=== PATIENT | male | born 1960 | race Caucasian/White ===

== ENCOUNTER → 2018-02-18 | Outpatient (CLI) | payer BC ==
[~2018-02-18] VITALS: Ht 182.9 cm; Wt 95.7 kg
[~2018-02-18] MED LIST: AC325T PO; ACHD5005 PO; ASP325TEC PO; ASP81TEC PO; ATEN-156 PO; ATOR80TA PO; CATHETER FLUSH 10 ML SYR IV PRN; CLOP75TA PO; CYCL10TA9 PO; ENAL2.5T PO; ISM30TCR PO; METO-333 PO; METO25TA2 PO; MTP25TSR PO; NITR0.4T12 SL; OMEP-10 PO; OMEP20TA2 PO; OMG1KC PO; PANT40SU PO; PNT40TEC PO; RANI75TA30 PO; SULF1TAB38 PO
[2018-02-18 09:01] VITALS: BP 128/82
[2018-02-18 09:17] VITALS: BP 121/77
[2018-02-18 09:25] VITALS: BP 151/83
--- NOTE | 2018-02-18 14:49 | STRESS TEST ---
DATE OF SERVICE: 02/18/2018 EXERCISE MYOVIEW STRESS TEST REPORT REFERRING PHYSICIAN: Dr. Castano. Baseline heart rate is 58, baseline blood pressure 128/95. Baseline EKG sinus rhythm with no ischemic changes. In summary, the patient was injected with 9.52 mCi of technetium-99 Myoview and the resting images were obtained. Then, the patient started exercising with a baseline heart rate, blood pressure and EKG mentioned above. He was able to exercise for a total of 8 minutes 30 seconds on standard Rosalino protocol, achieving maximum heart rate of 137. With peak exercise level, blood pressure was 183/104. EKG was showing minimal nondiagnostic changes. During recovery, occasional PVCs and ventricular bigeminy was noted. The resting and stress images were reviewed and compared in the short axis, horizontal long axis and vertical long axis views. Review of the images showed diaphragmatic attenuation with good radiotracer uptake, no significant ischemia or infarction. SSS is 1, SDS 1, TID value 1.06. On the gated images, the left ventricle appeared to be in normal size, mild hypokinesia at the apex and anteroapical segment. Estimated ejection fraction is 47%. CONCLUSION: 1. Good exercise tolerance, a total of 8 minutes 30 seconds of standard Rosalino protocol, total of 10.1 METS achieving 87% of maximum expected heart rate. 2. Hypertensive response to exercise, returned to baseline during recovery. 3. Occasional PVCs and ventricular trigeminy noted early in recovery and resolved later in recovery. 4. Normal left ventricular size with mild hypokinesia at the anterior wall and to her apex could be due to the PVCs with calculated ejection fraction of 47%. 5. Diaphragmatic attenuation with typical male pattern. No significant ischemia or infarction on SPECT images. Job ID: [id number] DocumentID: [id number] Dictated Date: 02/18/2018 11:18:44 Plastic Block Boiler Reliner Date: 02/18/2018 12:33:28 Dictated By: OSMANY GARCIA MD
== END ==
LOC: CARD 07:16
PROVIDERS: ATTEND Internal Medicine Cardiovascular Disease
DX: I25.10 Atherosclerotic heart disease of native coronary artery without angina pectoris (principal); R07.89 Other chest pain; I10 Essential (primary) hypertension; E78.2 Mixed hyperlipidemia
CPT/HCPCS: 78452; 93017; 93306

== ENCOUNTER → 2019-07-15 | Outpatient (CLI) | payer BC ==
[~2019-07-15] MED LIST changes: -CATHETER FLUSH 10 ML SYR IV PRN; +LISI10TA2 PO; +ROSU20TA2 PO
== END | disposition home or self-care (01) ==
LOC: PREOP 06-17 05:45
PROVIDERS: ATTEND Surgery
DX: Z01.818 Encounter for other preprocedural examination (principal)

== ENCOUNTER 2019-07-22 07:48 | Day surgery (SDC) | payer BC ==
[~2019-07-22] VITALS: Ht 182.9 cm; Wt 95.7 kg
[~2019-07-22 07:48] MED LIST changes: -LISI10TA2 PO; -ROSU20TA2 PO
[2019-07-22 08:00] VITALS: BP 154/98
[2019-07-22] MEDS ORDERED: LACTATED RINGERS 0 ML IV ONE (08:06)
[2019-07-22] MEDS ORDERED: LACTATED RINGERS 1,000 ML IV ONE (08:08)
[2019-07-22] MEDS ORDERED: LACTATED RINGERS 1,000 ML IV STA (08:12)
[2019-07-22] MEDS ORDERED: LISI10TA2 PO (08:12)
[2019-07-22] MEDS ORDERED: ROSU20TA2 PO (08:12)
[2019-07-22] MEDS ORDERED: HURRICAINE EXT TUBE (BENZOCAINE) XX PRN (08:15)
[2019-07-22] MEDS ORDERED: MIDAZOLAM 2 MG/2 ML (VERSED) VIAL ONE (08:58)
[2019-07-22] MEDS ORDERED: PROPOFOL INJECTION 50 ML IV ONE (08:59)
[2019-07-22] MEDS ORDERED: ESMOLOL 100 MG/10 ML (BREVIBLOC) VIAL ONE (09:10)
[2019-07-22 09:50] VITALS: BP 103/64
[2019-07-22] MEDS ORDERED: HURRICAINE EXT TUBE (BENZOCAINE) ONE (09:52)
--- NOTE | 2019-07-22 09:52 | Progress Note-Post Operative ---
Post-Operative Progess Note Surgeon (s)/Entertainment Agent (s) Surgeon BRAYDON MOREL DO Entertainment Agent: na Pre-Operative Diagnosis gerd, screening colon Post-Operative Diagnosis hiatal hernia, colon polyp sigmoid Procedure & Operative Findings Date of Procedure 07/22/19 Procedure Performed/Findings egd c biopsies, colonoscopy c hot bx polypectomy Anesthesia Type per mda Estimated Blood Loss Estimated blood loss (mL): none Specimens/Packing Specimens Removed antrum, ge, sigmoid colon polyp BRAYDON MOREL DO Jul 22, 2019 09:52
--- NOTE | 2019-07-22 09:53 | Discharge Inst-Simple/Standard ---
Discharge Inst-Standard Patient Instructions/Follow Up Plan of Care/Instructions/FU: 2 weeks Josefina Activity as Tolerated: Yes Discharge Diet: Regular Diet BRAYDON MOREL DO Jul 22, 2019 09:53
[2019-07-22 09:55] VITALS: BP 109/69
[2019-07-22 10:00] VITALS: BP 111/71
[2019-07-22 10:30] VITALS: BP 127/90
[2019-07-22 10:40] VITALS: BP 127/90
--- NOTE | 2019-07-22 10:46 | Anesthesia-General Post-Op ---
MAC Patient Condition Mental Status/LOC: Same as Preop Cardiovascular: Satisfactory Nausea/Vomiting: Absent Respiratory: Satisfactory Pain: Controlled Complications: Absent Post Op Complications Complications None Follow Up Care/Instructions Patient Instructions None needed. Anesthesiology Discharge Order Discharge Order Patient is doing well, no complaints, stable vital signs, no apparent adverse anesthesia problems. No complications reported per nursing. REID VALVERDE CRNA Jul 22, 2019 10:46
--- NOTE | 2019-07-22 17:14 | OPERATIVE REPORT ---
DATE OF SERVICE: 07/22/2019 PREOPERATIVE DIAGNOSES: Gastroesophageal reflux disease, screening colonoscopy. POSTOPERATIVE DIAGNOSES: Hiatal hernia, colon polyp, sigmoid. PROCEDURE: EGD with biopsies, colonoscopy with hot biopsy polypectomy of sigmoid colon polyp. SURGEON: Braydon Rocha DO ANESTHESIA: Per MDA. ESTIMATED BLOOD LOSS: None. COMPLICATIONS: None. SPECIMENS: Antrum, GE junction and sigmoid colon polyp. INDICATIONS: The patient is a 59-year-old male with reflux and needing screening colonoscopy. He understands risks and benefits of procedure and wished to proceed with procedures. Consent was signed in the chart. DESCRIPTION OF PROCEDURE: The patient was taken to the endoscopy suite, placed in left lateral recumbent position. Timeout was performed. Scope was inserted in mouth, down the esophagus, stomach and into the duodenum without difficulty. There were no polyps, masses or ulcerations within the duodenum. Scope was then slowly retracted back into the stomach where further insufflated. There were no polyps, masses or ulcerations. Biopsy of the antrum was obtained. Scope was retroflexed noting a moderate sized hiatal hernia, no other polyps, masses or ulcerations. Scope was returned to its normal position, slowly withdrawn to the distal esophagus. Some slight erythematous changes in the distal esophagus. Biopsy was obtained. Scope was then slowly retracted back until completely removed, noting no other pathology. Digital rectal exam was performed. There were no palpable polyps, mass or ulcerations. The scope was inserted in the rectum, advanced all the way to the cecum with minimal difficulty. Prep was adequate. Scope was then slowly retracted back. There were no polyps, masses or ulcerations within cecum, ascending, transverse and descending colon. In the distal sigmoid colon, there was a small polyp, which hot biopsy polypectomy was performed. Scope was continuously retracted back into the rectum, where it was also retroflexed noting no other pathology. Scope was returned to its normal position, slowly withdrawn until completely removed. The patient tolerated the procedure well without any complications, taken to recovery room in stable condition. We will continue on current medications. He will follow up in the office in 2 weeks. He will need repeat colonoscopy in 5 years unless change before then should be reevaluated at that time. Job ID: [id number] DocumentID: [id number] Dictated Date: 07/22/2019 09:56:38 Student Teaching Coordinator Date: 07/22/2019 17:13:44 Dictated By: BRAYDON ROCHA DO
== END 2019-07-22 10:40 | disposition home or self-care (01) ==
LOC: ENDO 07:48
PROVIDERS: ATTEND Surgery
DX: Z12.11 Encounter for screening for malignant neoplasm of colon (principal); K63.5 Polyp of colon; K29.50 Unspecified chronic gastritis without bleeding; K21.0 Gastro-esophageal reflux disease with esophagitis; K44.9 Diaphragmatic hernia without obstruction or gangrene; I10 Essential (primary) hypertension; I25.10 Atherosclerotic heart disease of native coronary artery without angina pectoris; Z79.82 Long term (current) use of aspirin; Z95.1 Presence of aortocoronary bypass graft; Z82.49 Family history of ischemic heart disease and other diseases of the circulatory system

== ENCOUNTER → 2020-01-04 | Outpatient (CLI) | payer BC ==
[~2020-01-04] MED LIST changes: +LISI10TA2 PO; +ROSU20TA2 PO
== END ==
LOC: LAB 11:02
PROVIDERS: ATTEND Surgery
DX: Z86.19 Personal history of other infectious and parasitic diseases (principal)
CPT/HCPCS: 36415; 87015; 87045; 87046; 87338; 87899

== ENCOUNTER → 2020-08-27 | Outpatient (CLI) | payer OTHER | LOC: CARD 10:00 | PROVIDERS: ATTEND Physician Assistant | DX: I25.10 Atherosclerotic heart disease of native coronary artery without angina pectoris (principal); I65.23 Occlusion and stenosis of bilateral carotid arteries; I10 Essential (primary) hypertension; E78.2 Mixed hyperlipidemia; Z82.49 Family history of ischemic heart disease and other diseases of the circulatory system | CPT/HCPCS: 93225; 93226; 93306 ==

== ENCOUNTER → 2020-09-03 | Outpatient (CLI) | payer OTHER | LOC: LABNPT 05:32 | PROVIDERS: ATTEND Internal Medicine Cardiovascular Disease | DX: Z01.812 Encounter for preprocedural laboratory examination (principal); Z53.9 Procedure and treatment not carried out, unspecified reason ==

== ENCOUNTER → 2020-09-06 | Outpatient (CLI) | payer OTHER ==
[~2020-09-06] VITALS: Ht 182 cm; Wt 108.0 kg
[~2020-09-06] MED LIST changes: +CATHETER FLUSH 10 ML SYR IV PRN
[2020-09-06 09:19] VITALS: BP 161/97
[2020-09-06 10:04] LABS: ALANINE AMINOTRANSFERASE 32 U/L (0-55); ALBUMIN 4.7 GM/DL (3.2-4.5); ALKALINE PHOSPHATASE 58 U/L (40-136); BILIRUBIN,TOTAL 0.4 MG/DL (0.1-1.0); BUN/CREATININE RATIO 18; CALCIUM 9.8 MG/DL (8.5-10.1); CARBON DIOXIDE 14 MMOL/L (21-32); CHLORIDE 102 MMOL/L (98-107); CHOLESTEROL 304 MG/DL (< 200); CREATININE SERUM 1.56 MG/DL (0.60-1.30); GFR ESTIMATED 45; GLUCOSE 102 MG/DL (70-105); HDL CHOLESTEROL 28 MG/DL (40-60); POTASSIUM 4.9 MMOL/L (3.6-5.0); SODIUM 136 MMOL/L (135-145); TOTAL PROTEIN 8.3 GM/DL (6.4-8.2); TRIGLYCERIDES 1635 MG/DL (<150)
--- NOTE | 2020-09-06 11:36 | Cardiology Stress Test Report ---
Stress Test Report Date of Procedure/Referring: Date of Procedure: Sep 06, 2020 PCP Anita Sanchez Admitting Physician No,Local Physician Indications: Coronary artery disease Baseline Heart Rate: 75 Baseline Blood Pressure: Blood Pressure Systolic: 161 Blood Pressure Diastolic: 97 Vital Signs Date Time Temp Pulse Resp B/P (MAP) Pulse Ox O2 Delivery O2 Flow Rate FiO2 09/06/20 09:19 95 16 161/97 (118) 95 Room Air Baseline Vital Signs Vital Signs Date Time Temp Pulse Resp B/P (MAP) Pulse Ox O2 Delivery O2 Flow Rate FiO2 09/06/20 09:19 95 16 161/97 (118) 95 Room Air Baseline EKG: Baseline EKG: normal sinus rhythm Summary: After explaining the procedure and details to the patient, he signed the consent and was brought to the stress nuclear laboratory. Patient exercised on standard Rosalino protocol, EKG, heart rate and blood pressure were monitored continuously, resting and stress doses of radio tracer were injected, imaging was acquired and reviewed in the short axis, horizontal long axis and vertical long axis views Patient was able to exercise for a total of 4:30 minutes on Rosalino protocol, METs 6.4 Maximum heart rate 144 Maximum blood pressure 226/96 Stress EKG, Minimal nondiagnostic changes, frequent PVCs, ventricular bigeminy Recovery EKG, Return to baseline TID: 0.86 SSS: 4 SDS: 4 EF: 51 Conclusion: 1. Poor exercise tolerance for total 4 minutes 30 seconds on standard Rosalino protocol, 6.4 METs achieving 91 percent of maximum expected heart rate 2. Exercise induced frequent premature ventricular contractions persisted during recovery 3. Minimal nondiagnostic EKG changes with exercise returned to baseline during recovery 4. Diaphragmatic attenuation with mild reversible ischemia involving the mid to apical inferior wall and inferoseptum, could be secondary to the diaphragmatic attenuation 5. Normal left ventricular size, EF 51 percent OSMANY GARCIA MD Sep 06, 2020 11:36
== END ==
LOC: CARD 07:18
PROVIDERS: ATTEND Physician Assistant
DX: I25.10 Atherosclerotic heart disease of native coronary artery without angina pectoris (principal); I65.23 Occlusion and stenosis of bilateral carotid arteries; I10 Essential (primary) hypertension; E78.2 Mixed hyperlipidemia; Z82.49 Family history of ischemic heart disease and other diseases of the circulatory system
CPT/HCPCS: 78452; 80053; 80061; 93017; A9502; 36415

== ENCOUNTER → 2021-11-30 | Day surgery (SDC) | payer OTHER ==
[~2021-11-30] VITALS: Ht 182.9 cm; Wt 108.1 kg
[~2021-11-30] MED LIST changes: -CATHETER FLUSH 10 ML SYR IV PRN; +FAMO20TA3 PO; +GEMF600T88 PO; +HEParin (CATH LAB) 0 ML IV ONE; +LIDOCAINE 1% INJ 20 ML VIAL ONE; -LISI10TA2 PO; +LISI10TA25 PO; +NS IV 1000 ML 1,000 ML IV SCH; +NS IV 1000 ML 1,000 ML ONE
[2021-11-30 11:45] VITALS: BP 150/88
[2021-11-30 11:56] LABS: HEMATOCRIT 48 % (40-54); MEAN CORPUSCULAR HEMOGLOBIN 31 pg (25-34); MEAN CORPUSCULAR HGB CONC 36 g/dL (32-36); MEAN CORPUSCULAR VOLUME 88 fL (80-99); MEAN PLATELET VOLUME 10.6 fL (9.0-12.2); PLATELET COUNT 225 10^3/uL (130-400); WHITE BLOOD COUNT 5.6 10^3/uL (4.3-11.0)
[2021-11-30 12:12] LABS: ALANINE AMINOTRANSFERASE 26 U/L (0-55); ALBUMIN 4.9 GM/DL (3.2-4.5); ALKALINE PHOSPHATASE 49 U/L (40-136); BILIRUBIN,TOTAL 0.3 MG/DL (0.1-1.0); BUN/CREATININE RATIO 20; CARBON DIOXIDE 16 MMOL/L (21-32); CHLORIDE 108 MMOL/L (98-107); CHOLESTEROL 205 MG/DL (< 200); CREATININE SERUM 2.56 MG/DL (0.60-1.30); GFR ESTIMATED 27; GLUCOSE 108 MG/DL (70-105); HDL CHOLESTEROL 26 MG/DL (40-60); POTASSIUM 4.5 MMOL/L (3.6-5.0); SODIUM 137 MMOL/L (135-145); TOTAL PROTEIN 8.4 GM/DL (6.4-8.2); TRIGLYCERIDES 307 MG/DL (<150); VLDL CHOLESTEROL 61 MG/DL (5-40)
--- NOTE | 2021-11-30 12:23 | Diagnostic Imaging Report ---
INDICATION: Preop for heart catheterization. TIME OF EXAM: 11:45 AM Correlation is made with prior chest in 08/14/2011. FINDINGS: There are changes of median sternotomy and CABG. The heart size is normal. Lungs are clear. No infiltrates are seen. There is no effusion or pneumothorax. IMPRESSION: No acute cardiopulmonary process is detected. Dictated by: Dictated on workstation # [id number]
== END | disposition home or self-care (01) ==
LOC: CATH 13:00
PROVIDERS: ATTEND Internal Medicine Cardiovascular Disease
DX: I25.10 Atherosclerotic heart disease of native coronary artery without angina pectoris (principal); I10 Essential (primary) hypertension; I49.3 Ventricular premature depolarization; E78.1 Pure hyperglyceridemia; N52.9 Male erectile dysfunction, unspecified; Z79.899 Other long term (current) drug therapy; E78.2 Mixed hyperlipidemia; Z95.1 Presence of aortocoronary bypass graft; Z87.891 Personal history of nicotine dependence; Z79.82 Long term (current) use of aspirin; K21.9 Gastro-esophageal reflux disease without esophagitis; Z53.09 Procedure and treatment not carried out because of other contraindication
CPT/HCPCS: 36415; 71045; 80053; 80061; 85027; 85610; 85730; 87081

== ENCOUNTER 2021-12-07 11:00 | Day surgery (SDC) | payer OTHER ==
[~2021-12-07] VITALS: Ht 182 cm; Wt 108.1 kg
[2021-12-07] VITALS (11 sets, daily range): BP systolic 127–171; BP diastolic 65–89
[2021-12-07 10:00] LABS: BILIRUBIN,URINE NEGATIVE (NEGATIVE); CLARITY,URINE CLEAR; COLOR,URINE YELLOW; GLUCOSE, URINE (UA) NEGATIVE (NEGATIVE); KETONES,URINE NEGATIVE (NEGATIVE); LEUKOCYTE ESTERASE ,URINE NEGATIVE (NEGATIVE); NITRITE,URINE NEGATIVE (NEGATIVE); PROTEIN,URINE 1+ (NEGATIVE)
[2021-12-07 10:02] LABS: BASOPHILS % (AUTO) 1 % (0-10); EOSINOPHILS # (AUTO) 0.1 10^3/uL (0.0-0.3); EOSINOPHILS % (AUTO) 3 % (0-10); HEMATOCRIT 42 % (40-54); HEMOGLOBIN 14.6 g/dL (13.3-17.7); LYMPHOCYTES # (AUTO) 1.8 10^3/uL (1.0-4.0); LYMPHOCYTES % (AUTO) 34 % (12-44); MEAN CORPUSCULAR HEMOGLOBIN 31 pg (25-34); MEAN CORPUSCULAR HGB CONC 35 g/dL (32-36); MEAN CORPUSCULAR VOLUME 89 fL (80-99); MEAN PLATELET VOLUME 10.3 fL (9.0-12.2); MONOCYTES # (AUTO) 0.4 10^3/uL (0.0-1.0); MONOCYTES % (AUTO) 8 % (0-12); NEUTROPHILS # (AUTO) 2.8 10^3/uL (1.8-7.8); NEUTROPHILS % (AUTO) 54 % (42-75); PLATELET COUNT 247 10^3/uL (130-400); WHITE BLOOD COUNT 5.2 10^3/uL (4.3-11.0)
[2021-12-07 10:07] LABS: BACTERIA,URINE NEGATIVE /HPF
[2021-12-07 10:11] LABS: PROTHROMBIN TIME PATIENT 13.4 SEC (12.2-14.7)
[2021-12-07 10:21] LABS: ALANINE AMINOTRANSFERASE 21 U/L (0-55); ALBUMIN 4.6 GM/DL (3.2-4.5); ALKALINE PHOSPHATASE 44 U/L (40-136); BILIRUBIN,TOTAL 0.4 MG/DL (0.1-1.0); BUN/CREATININE RATIO 11; CARBON DIOXIDE 21 MMOL/L (21-32); CHLORIDE 107 MMOL/L (98-107); CHOLESTEROL 210 MG/DL (< 200); CREATININE SERUM 1.69 MG/DL (0.60-1.30); GFR ESTIMATED 45; GLUCOSE 102 MG/DL (70-105); HDL CHOLESTEROL 32 MG/DL (40-60); POTASSIUM 4.3 MMOL/L (3.6-5.0); SODIUM 141 MMOL/L (135-145); TOTAL PROTEIN 7.6 GM/DL (6.4-8.2); TRIGLYCERIDES 165 MG/DL (<150); VLDL CHOLESTEROL 33 MG/DL (5-40)
[~2021-12-07 11:00] MED LIST changes: -HEParin (CATH LAB) 0 ML IV ONE; +HEParin (CATH LAB) 2,000 ML IV ONE; +MIDAZOLAM 5 MG/5 ML (VERSED) VIAL ONE; +fentaNYL INJ 100 MCG/2 ML AMP ONE
--- NOTE | 2021-12-07 11:13 | Conscious Sedation/ASA ---
Conscious Sedation Pre-Proced Time 11:13 ASA Score 3 For ASA 3 and 4: Consider anesthesia and medical clearance. Also, for patients with a history of failed moderate sedation consider anesthesia. Airway Lungs Heart ASA score ASA 1: a normal healthy patient ASA 2: a patient with a mild systemic disease (mid diabetes, controlled hypertension, obesity x ASA 3: a patient with a severe systemic disease that limits activity (angina, COPD, prior Myocardial infarction) ASA 4: a patient with an incapacitating disease that is a constant threat to life (CHF, renal failure) ASA 5: a moribund patient not expected to survive 24 hrs. (ruptured aneurysm) ASA 6: a declared brain- patient whose organs are being harvested. For emergent operations, add the letter E after the classification Mallampati Classification Grade 3 Sedation Plan Analgesia, Amnesia, Plan communicated to team members, Discussed options with patient/fam, Discussed risks with patient/fam The patient is an appropriate candidate to undergo the planned procedure, sedation, and anesthesia. The patient immediately re-assessed prior to indication. OSMANY GARCIA MD Dec 07, 2021 11:13
[2021-12-07] MEDS ORDERED: LIDOCAINE 1% INJ 20 ML VIAL ONE (11:23)
[2021-12-07] MEDS ORDERED: NS IV 1000 ML 1,000 ML ONE (11:59)
--- NOTE | 2021-12-07 12:14 | Discharge Inst-Post CATH ---
Discharge Inst-CATH/EP Problems Reviewed?: Yes Post Cardiac Cath/EP D/C Inst Follow Up/Plan Appointment with Dr. King's office in 2 to 4 weeks <b>CARDIAC CATH/EP PROCEDURE DISCHARGE INSTRUCTIONS</b> ACTIVITY * Go Home directly and rest. * Limit activity of the leg (or wrist if it was used) for 7 days including aer obics, swimming, jogging, bicycling, etc. * Restrict stair-climbing for 7 days if possible, if not, climb up with your non-cath leg, then bring together on the same step. * Avoid lifting, pushing, pulling or excessive movement of the affected extremi ty for 7 days. * Customary sexual activity may be resumed after 2 days-use caution not to use a position that strains or causes pain to the affected extremity. * No driving for 24 hours. * NO SMOKING. * Avoid straining for bowel movements for 7 days. * Gentle walking on level ground is allowed. * Returning to work will depend on the type of procedure and the results. Your doctor will discuss this with you. CALL YOUR DOCTOR FOR ANY OF THE FOLLOWING: *If bleeding from the puncture site occurs- Apply gentle pressure to site with clean cloth and call your doctor or EMS. * If a knot or lump forms under the skin, increases in size, or causes pain. * If bruising appears to be worsening or moving further down your leg instead of disappearing. * Temperature above 101 F. CARE OF YOUR GROIN INCISION; * Bruising or purple discoloration of the skin near the puncture site is common. * You may shower only, no bathtub bathing for 5 days. Be careful to avoid slipping as your leg may feel stiff. * If a closure device was used on your femoral artery, please see the attached guide regarding care of the device and your leg. * Leave dressing on FOR 24 hours. CARE OF YOUR WRIST INCISION; * Bruising or purple discoloration of the skin near the puncture site is common. * You may shower. * DO NOT submerge wrist. * Leave dressing on FOR 24 hours. OSMANY KING MD Dec 07, 2021 12:14
[2021-12-07] MEDS ORDERED: NS IV 1000 ML 1,000 ML IV SCH (12:15)
[2021-12-07] MEDS ORDERED: PATIENT MAY USE OWN MEDS, ALL PO SCH (12:15)
--- NOTE | 2021-12-07 12:23 | Cardiac Cath Report ---
Cardiac Cath Report Physician (s)/Fiber Locking Supervisor (s) Physician OSMANY GARCIA MD Pre-Procedure Diagnosis Pre-Procedure Diagnosis: Coronary artery disease Post-Procedure Note Procedure Start Date: Dec 07, 2021 Name of Procedure: Coronary angiogram CAREY angiogram Aortic arch angiogram Abdominal aortogram Findings/Procedure Note PROCEDURE NOTE: 61-year-old gentleman with history of coronary artery disease, CABG, chronic renal insufficiency, had an abnormal stress test, scheduled for angiogram. After explaining the procedure to the patient, all pros and cons were explained, all questions were answered. The patient signed the consent and then he was placed on the cardiac catheterization laboratory. Groin was prepped SL fashion local anesthesia was used. Sheath placed in the right femoral artery, I had difficulty advancing the catheter through the right iliac artery, I aborted that attempt and placed the sheath in the left femoral artery, I was unable to advan ce the catheter through the left iliac artery did angiogram to the left iliac artery which showed total occlusion, angiogram to the right iliac artery showed severe stenosis, I had significant difficulty in advancing the catheter to the coronary cusp, I was unable to move the catheter or torque it to the right or left due to to severe stenosis at the iliac. I was able to advance it to the subclavian artery and did nonselective angiogram to the CAREY. Her catheter was exchanged using long wire and use right vein graft, I was unable to access any of the vein graft and unable to manipulate the catheter. Catheter was exchanged to pigtail catheter and placed in the aortic arch aortic arch angiogram was done then I pulled it down to the abdominal aorta and abdomin al aortogram was done. At the end of the procedure the sheath was removed. Closure device was deployed to both groins FINDINGS: Hemodynamics LV was not evaluated Aorta 125/60 mean of 85 ANATOMY: Coronaries were not evaluated selectively, I was unable to engage any of the coronaries with the catheter. CAREY angiogram showed patent CAREY to the LAD with good flow down to the distal LAD. Nonobstructive disease Aortic arch angiogram was done showing heavily calcified aortic arch no dissection or aneurysm, clips of bypasses were seen but no bypasses were filled. Abdominal aortogram was done showing heavily calcified abdominal aorta, mild to moderate disease in the right renal artery, mild disease in the left renal artery. Total occlusion of the left iliac artery at the ostium, severe stenosis of the ostial right iliac artery. CONCLUSION: 1. Severe extensive peripheral arterial disease with occlusion of the left iliac artery and severe stenosis of the right iliac artery, complicated the diagnostic angiogram procedure. 2. Patent CAREY to LAD with good flow in the distal LAD 3. Otherwise I was unable to evaluate any of the coronary anatomy or the w[place] arteries 4. Hypertensive changes in the aortic arch DISCUSSION AND RECOMMENDATION: I will refer the patient for evaluation for stenting of the distal abdominal aorta and the iliac arteries then will consider reattempting angiogram or referring him to a tertiary care center for evaluation Anesthesia Type: Conscious Sedation Estimated blood loss (mL): 30 ml Contrast Amount: 62 ml Total Radiation Dose: 617 mGy Post-Procedure Diagnosis Post-operative diagnosis: Peripheral arterial disease Coronary artery disease Hypertension Hyperlipidemia OSMANY GARCIA MD Dec 07, 2021 12:23
== END 2021-12-07 17:00 ==
LOC: CATH 11:00 → SDC 12:32 → CATH 17:00
PROVIDERS: ATTEND Internal Medicine Cardiovascular Disease
DX: I25.10 Atherosclerotic heart disease of native coronary artery without angina pectoris (principal); I73.9 Peripheral vascular disease, unspecified; I10 Essential (primary) hypertension; I65.29 Occlusion and stenosis of unspecified carotid artery; I65.23 Occlusion and stenosis of bilateral carotid arteries; N52.9 Male erectile dysfunction, unspecified; E78.5 Hyperlipidemia, unspecified; K21.9 Gastro-esophageal reflux disease without esophagitis; Z79.82 Long term (current) use of aspirin; Z87.891 Personal history of nicotine dependence; Z79.899 Other long term (current) drug therapy; Z80.9 Family history of malignant neoplasm, unspecified
CPT/HCPCS: 36221; 75625; 80053; 80061; 81000; 85025; 85610; 85730; 87081; 93455; C1760; C1769; C1894; 36415; 36430

== ENCOUNTER 2021-12-26 11:17 | Emergency (ER) | payer OTHER ==
[~2021-12-26] VITALS: Ht 182 cm; Wt 112.0 kg
[~2021-12-26 11:17] MED LIST changes: -HEParin (CATH LAB) 2,000 ML IV ONE; -LIDOCAINE 1% INJ 20 ML VIAL ONE; -MIDAZOLAM 5 MG/5 ML (VERSED) VIAL ONE; -NS IV 1000 ML 1,000 ML IV SCH; -NS IV 1000 ML 1,000 ML ONE; -fentaNYL INJ 100 MCG/2 ML AMP ONE
--- NOTE | 2021-12-26 12:20 | ED Integumentary General ---
General Chief Complaint: Skin/Wound Problems Stated Complaint: S/P STENTS R LEG, BRUISING/PAIN Nursing Triage Note: PT HAS RT GROIN PAIN THAT STARTED THIS MORNING AFTER BM. PT HAD STENTS PLACED 12/23/21 AT [place] AND IS WANTING SITE ASSESSED. BRUSING NOTED. PT AMB. TO ROOM 02. Source: patient Exam Limitations: no limitations History of Present Illness Date Seen by Provider: Dec 26, 2021 Time Seen by Provider: 12:17 Initial Comments Patient is a 61-year-old male who presents ED with pain in his right leg. Patient with a history of peripheral artery disease, coronary artery disease had stents placed around his heart and right groin this past weekend by Dr. Hodges at [facility]. States today he was having a bowel movement had a sharp pain in his right groin with bruising. Currently on Effient. Reports some pain and discomfort in his right groin. No coolness or severe pain in his lower extremities. Denies any chest pain, shortness of breath, cough fever, chills. Patient was discharged from [facility] yesterday. Denies any fever, chills, headache, dizziness, abdominal pain vomiting, diarrhea. Patient is concerned for the increasing pain in the right groin and the bruising. Allergies and Home Medications Allergies Coded Allergies: No Known Drug Allergies (Unverified , 04/02/11) Patient Home Medication List Home Medication List Reviewed: Yes Aspirin (Aspirin Ec 81 Mg) 81 Mg Tabec, 81 MG PO DAILY, (Reported) Entered as Reported by: KELSIE CORDERO on 08/22/121756 Famotidine (Acid Laboratory Veterinarian (FAMOTIDINE)) 20 Mg Tablet, 20 MG PO BID, (Reported) Entered as Reported by: JULISA GOODMAN on 12/07/21 1000 Gemfibrozil (Gemfibrozil) 600 Mg Tablet, 600 MG PO BID, (Reported) Entered as Reported by: JULISA GOODMAN on 12/07/21 1000 Lisinopril (Lisinopril) 10 Mg Tablet, 10 MG PO BID, (Reported) Entered as Reported by: GARRETT MESSER on 07/22/19 0812 Metoprolol Tartrate (Metoprolol Tartrate 25 Mg) 25 Mg Tablet, 1 TAB PO BID, (Reported) Entered as Reported by: KELSIE CORDERO on 08/22/12 175 Rosuvastatin Calcium (Crestor) 20 Mg Tablet, 20 MG PO HS, (Reported) Entered as Reported by: GARRETT MESSER on 07/22/19 0812 Review of Systems Review of Systems Constitutional: No chills, No diaphoresis, No dizziness, No fever, No malaise EENTM: No ear pain, No mouth pain, No mouth swelling Respiratory: No cough, No dyspnea on exertion Cardiovascular: No chest pain Gastrointestinal: No abdominal pain, No diarrhea, No nausea, No vomiting Genitourinary: No decreased output, No dysuria, No frequency Musculoskeletal: No back pain, No joint pain Skin: change in color, other (Bruising and swelling right groin) All Other Systems Reviewed Negative Unless Noted: Yes Past Lmpfyau-Qbesco-Auhxer Hx Patient Social History Tobacco Use?: No Smoking Status: Former Smoker Substance use?: No Alcohol Use?: Yes Alcohol type: Beer Alcohol Frequency: Once in a while Pt feels they are or have been: No Immunizations Up To Date Tetanus Booster (TDap): Unknown PED Vaccines UTD: No First/Initial COVID19 Vaccinat: 03/06/21 Second COVID19 Vaccination Yuval: 03/27/21 COVID19 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 SURGERY:12/23/21 PT HAD STENTS AND BALLOON PLACED.2010 QUAD. BI-PASS. Surgeries: Yes Respiratory: No Currently Using CPAP: No Cardiac: Yes Hypertension Neurological: No Reproductive Disorders: No Genitourinary: No Gastrointestinal: No Musculoskeletal: Yes Endocrine: No HEENT: Yes Cancer: No Psychosocial: No Integumentary: No Blood Disorders: No Physical Exam Vital Signs Vital Signs - First Documented 12/26/21 11:32 Temp 35.8 Pulse 79 Resp 18 B/P (MAP) 154/87 (109) Pulse Ox 98 O2 Delivery Room Air Capillary Refill : Less Than 3 Seconds General Appearance: WD/WN, no apparent distress HEENT: PERRL/EOMI, normal ENT inspection, TMs normal, pharynx normal Neck: non-tender, full range of motion, supple, normal inspection Cardiovascular: regular rate, rhythm, no edema, no gallop, no JVD, no murmur Respiratory: chest non-tender, lungs clear, normal breath sounds, no respiratory distress Gastrointestinal: normal bowel sounds, non tender, soft, no organomegaly, no pulsatile mass Back: normal inspection, no CVA tenderness, no vertebral tenderness Extremities: normal range of motion, no pedal edema, other (Bruising noted right groin with mild tenderness. No induration. No severe lower leg swelling, tenderness. +1 dorsalis pedis right leg. 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 Started this morning. Patient has no other complaints. Good pulses bilateral. Ultrasound right leg negative for DVT. Ultrasound the right leg showed a pseudoaneurysm 2.7 x 2.1 cm in the right femoral artery. This was discussed with Dr. Blas vascular surgeon at [facility] who performed surgery on the patient this past weeke nd with cardiac stents and peripheral stents. Recommends following up at the [facility] in the morning around 11 AM for surgery. He felt like patient can be discharged at this time with follow-up. Patient agrees with this plan of action. Patient with a steady gait. Avoid heavy lifting or strenuous activity. If any worsening symptoms return back to ED for further evaluation. Impression Primary Impression: Pseudoaneurysm following procedure Disposition: 01 HOME, SELF-CARE Condition: Stable Departure-Patient Inst. Decision time for Depature: 14:39 Referrals: SCARLETT ENRIQUE MD (PCP/Family) Primary Care Physician Patient Instructions: Wound Care (DC) Add. Discharge Instructions: Follow-up at the [facility] at 8:[address] Blas All discharge instructions reviewed with patient and/or family. Voiced understanding. KATHY MEDINA Dec 26, 2021 12:20
--- NOTE | 2021-12-26 13:20 | Diagnostic Imaging Report ---
PROCEDURE: US right lower extremity venous. TECHNIQUE: Multiple Real-time grayscale images were obtained over the right lower extremity in various projections. Additional spectral analysis and color Doppler duplex images were also obtained. INDICATION: Leg pain and swelling. TECHNIQUE/COMPARISON: Spectral and color-flow imaging of the deep venous system was performed. There are no prior studies available for comparison. FINDINGS: There is generally good blood flow and compressibility at all levels. There is no evidence for deep venous thrombosis. IMPRESSION: 1. There is no evidence for deep venous thrombosis of the right lower extremity. 2. These results were conveyed to the Emergency Room physician by our sonologist. Dictated by: Dictated on workstation # [id number]
--- NOTE | 2021-12-26 14:05 | Diagnostic Imaging Report ---
HISTORY: Recent heart catheterization. Right leg pain, swelling and bruising. TECHNIQUE: Grayscale, color Doppler, spectral Doppler ultrasound of the arterial structures in the right lower extremity COMPARISON: None FINDINGS: In the region of the right common femoral artery there appears to be a hypoechoic round structure which contains a devika-almanza blood flow and measures approximately 2.7 x 2.1 cm in size. The stalk with the artery measures approximately 8 mm. The right common femoral artery has a biphasic waveform and measures 76 cm/s. The deep femoral artery has a biphasic waveform and measures 85 cm/s. The superficial femoral artery has a biphasic waveform and ranges between 45 and 67 cm/s. The popliteal artery measures 58 cm/s. The posterior tibial artery has a biphasic waveform and measures 39 cm/s. The dorsalis pedis has a biphasic waveform and measures 50 cm/s. IMPRESSION: 1. Pseudoaneurysm in the right common femoral artery region measuring up to 2.7 cm. 2. No high-grade stenosis or occlusion is seen in the arteries of the right lower extremity. Findings reported to the ordering provider by the automotive mechanical engineer following the examination. Dictated by: Dictated on workstation # [id number]
[2021-12-26 14:48] VITALS: BP 128/81
== END 2021-12-26 14:48 | disposition home or self-care (01) ==
LOC: EDUNIT# 11:17 → ER 11:19
DX: I72.9 Aneurysm of unspecified site (principal); I10 Essential (primary) hypertension; Z87.891 Personal history of nicotine dependence; E78.5 Hyperlipidemia, unspecified; Z79.82 Long term (current) use of aspirin; Z79.899 Other long term (current) drug therapy
CPT/HCPCS: 93926; 99281

== ENCOUNTER → 2022-08-11 | Outpatient (CLI) | payer OTHER ==
[2022-08-11 09:42] LABS: ALBUMIN 4.5 GM/DL (3.2-4.5)
[2022-08-11 09:43] LABS: CALCIUM 9.6 MG/DL (8.5-10.1)
[2022-08-11 09:45] LABS: TOTAL PROTEIN 7.2 GM/DL (6.4-8.2)
[2022-08-11 09:46] LABS: BILIRUBIN,TOTAL 0.6 MG/DL (0.1-1.0)
[2022-08-11 09:48] LABS: CREATININE SERUM 1.47 MG/DL (0.60-1.30)
== END ==
LOC: CARD 09:10
PROVIDERS: ATTEND Internal Medicine Cardiovascular Disease
DX: I35.1 Nonrheumatic aortic (valve) insufficiency (principal); I11.9 Hypertensive heart disease without heart failure; I65.29 Occlusion and stenosis of unspecified carotid artery; I25.10 Atherosclerotic heart disease of native coronary artery without angina pectoris; E78.2 Mixed hyperlipidemia
CPT/HCPCS: 80053; 80061; C8929; 36415; 93306

== ENCOUNTER → 2022-08-30 | Outpatient (CLI) | payer OTHER ==
[~2022-08-30] MED LIST changes: +REGADENOSON 0.4 MG/5 ML SYR (LEXISCAN) IV ONE
[2022-08-30] MEDS: CATHETER FLUSH 10 ML SYR IVP PRN (08:03)
--- NOTE | 2022-08-30 09:24 | Diagnostic Imaging Report ---
INDICATION: Dyspnea on exertion COMPARISON: 11/30/2021 TECHNIQUE: 3 radiographs of the chest dated 08/30/2022. FINDINGS: Postsurgical changes of a median sternotomy. The cardiac silhouette is within normal limits in size. No significant pulmonary vascular congestion. The right lung is clear. Linear interstitial opacities are identified within the left lung base with associated elevation of the left hemidiaphragm, which is new since the prior examination. The left lung is otherwise clear. No significant pleural effusion. No pneumothorax. Scattered osseous degenerative changes without acute osseous abnormality. IMPRESSION: New left basilar scarring and/or atelectasis with associated elevation of the left hemidiaphragm. Recommend radiographic follow-up to ensure resolution. Dictated by: Dictated on workstation # [id number]
[2022-08-30 09:42] VITALS: BP 151/89
--- NOTE | 2022-08-30 11:55 | Cardiology Stress Test Report ---
Stress Test Report Date of Procedure/Referring: Date of Procedure: Aug 30, 2022 PCP David Luevano MD Admitting Physician Admitting Physician: Attending Physician: Osmany King MD Indications: CP Baseline Heart Rate: 76 Baseline Blood Pressure: Blood Pressure Systolic: 151 Blood Pressure Diastolic: 89 Baseline Vitals Vital Signs Date Time Temp Pulse Resp B/P (MAP) Pulse Ox O2 Delivery O2 Flow Rate FiO2 08/30/22 09:42 82 151/89 (109) Baseline EKG: Baseline EKG: NSR Summary After explaining the procedure to the patient, he signed a consent and then brought to the stress nuclear laboratory. Patient received 0.4 mg Lexiscan for stress test, ECG, heart rate and blood pressure were monitored continuously. Resting and stress dose of radio tracer were injected, imaging was acquired and reviewed in short axis, horizontal long axis and vertical long axis views. TID: 1.1 SSS: 6 SDS: 4 EF: 37 1. Patient tolerated Lexiscan well 2. Diaphragmatic attenuation with reversible ischemia involving the inferior wall and inferolateral wall 3. Prominent left ventricle with diffuse left ventricular hypokinesia more pronounced at the inferior wall, ejection fraction 37% Copy Copies To 1: [facility] OSMANY KING MD Aug 30, 2022 11:55
== END ==
LOC: CARD 07:46
PROVIDERS: ATTEND Internal Medicine Cardiovascular Disease
DX: I25.10 Atherosclerotic heart disease of native coronary artery without angina pectoris (principal); I10 Essential (primary) hypertension
CPT/HCPCS: 71046; 78452; 93017; A9502

== ENCOUNTER 2023-04-12 22:54 | Emergency (ER) | payer MEDICARE, MEDICAID ==
[~2023-04-12] VITALS: Ht 182.8 cm; Wt 112.0 kg
[~2023-04-12 22:54] MED LIST changes: -REGADENOSON 0.4 MG/5 ML SYR (LEXISCAN) IV ONE
[2023-04-12] MEDS ORDERED: ASPIRIN 81 MG CHEW (CHILDREN'S ASA) PO ONE (23:00)
[2023-04-12] MEDS: NITROGLYCERIN 0.4 MG SL TABS BTL 25'S SL PRN ×2 (23:19→23:25)
[2023-04-12 23:25] LABS: BASOPHILS % (AUTO) 0 % (0-10); EOSINOPHILS # (AUTO) 0.3 10^3/uL (0.0-0.3); EOSINOPHILS % (AUTO) 4 % (0-10); HEMATOCRIT 46 % (40-54); HEMOGLOBIN 16.2 g/dL (13.3-17.7); LYMPHOCYTES # (AUTO) 2.5 10^3/uL (1.0-4.0); LYMPHOCYTES % (AUTO) 37 % (12-44); MEAN CORPUSCULAR HEMOGLOBIN 31 pg (25-34); MEAN CORPUSCULAR HGB CONC 36 g/dL (32-36); MEAN CORPUSCULAR VOLUME 88 fL (80-99); MEAN PLATELET VOLUME 9.7 fL (9.0-12.2); MONOCYTES # (AUTO) 0.7 10^3/uL (0.0-1.0); MONOCYTES % (AUTO) 10 % (0-12); NEUTROPHILS # (AUTO) 3.3 10^3/uL (1.8-7.8); NEUTROPHILS % (AUTO) 49 % (42-75); PLATELET COUNT 270 10^3/uL (130-400); WHITE BLOOD COUNT 6.7 10^3/uL (4.3-11.0)
[2023-04-12] MEDS ORDERED: morphine INJ 10 MG/ML 1ML (SYR OR VIAL) IVP STA (23:28)
[2023-04-12] MEDS ORDERED: morphine INJ 4 MG/ML 1 ML (VIAL/SYRINGE) ONE (23:31)
[2023-04-12 23:36] LABS: ALBUMIN 4.6 GM/DL (3.2-4.5); CHLORIDE 106 MMOL/L (98-107); POTASSIUM 4.1 MMOL/L (3.6-5.0); SODIUM 140 MMOL/L (135-145)
[2023-04-12 23:37] LABS: INR 0.9 (0.8-1.4); PROTHROMBIN TIME PATIENT 12.7 SEC (12.2-14.7)
[2023-04-12 23:38] LABS: AMYLASE 103 U/L (25-125); GLUCOSE 140 MG/DL (70-105); TOTAL PROTEIN 7.2 GM/DL (6.4-8.2)
[2023-04-12 23:39] LABS: CARBON DIOXIDE 22 MMOL/L (21-32)
[2023-04-12 23:40] LABS: BILIRUBIN,TOTAL 0.3 MG/DL (0.1-1.0); FIBRIN DEGRADATION PRODUCTS 0.37 UG/ML (0.00-0.49)
[2023-04-12 23:42] LABS: ALKALINE PHOSPHATASE 88 U/L (40-136); CREATININE SERUM 1.34 MG/DL (0.60-1.30); GFR ESTIMATED 59
[2023-04-12 23:43] LABS: BUN/CREATININE RATIO 16
[2023-04-12 23:45] LABS: ALANINE AMINOTRANSFERASE 27 U/L (0-55); MAGNESIUM 1.9 MG/DL (1.6-2.4)
[2023-04-12] MEDS ORDERED: CLOPIDOGREL 300 MG (PLAVIX) TABLET PO ONE (23:45)
[2023-04-12] MEDS ORDERED: HEParin DRIP 25000 UNIT/500ML 500 ML IV ONE (23:45)
[2023-04-12] MEDS ORDERED: NS IV 1000 ML 1,000 ML IV SCH (23:45)
[2023-04-12] MEDS ORDERED: HEParin 1000 UNIT/ML (10ML VIAL) FOR BOLUS IV ONE (23:45)
[2023-04-12 23:47] LABS: CREATINE KINASE 107 U/L (30-200); LIPASE 70 U/L (8-78)
[2023-04-12 23:53] LABS: CREATINE KINASE MB 1.7 NG/ML (<6.6)
--- NOTE | 2023-04-13 00:40 | ED Chest Pain ---
General Chief Complaint: Chest Pain Stated Complaint: CHEST PAIN Nursing Triage Note: TO ED VIA POV AND AMBULATORY AND C/O CP THAT STARTED APPROX [phone]. PT STATES HE WAS SOA AND DIAPHORETIC. PT IS VERY SOA ON ARRIVAL TO ER. DENIES NAUSEA. HX CABG IN 2010 AND STENTING/BALLOON [address] FLOYD AT [facility]. Source: patient History of Present Illness Date Seen by Provider: Apr 12, 2023 Time Seen by Provider: 23:00 Initial Comments PT ARRIVES VIA POV FROM HOME IN [place], [place] C/O CHEST PAIN SINCE AROUND 1630 THIS AFTERNOON PAIN MUCH WORSE SINCE AROUND [id number] TONIGHT, SHORTLY AFTER EATING FRIED POTATOES AND FRIED DEER BURGER. PT STATES HE WAS SITTING AND TALKING ON THE PHONE TO HIS SISTER, AND BEGAN BREAKING OUT IN A SWEAT TONIGHT, PRIOR TO ARRIVAL AND CHEST PAIN AND SHORTNESS OF BREATH BECAME MUCH WORSE HE ALSO IS VERY SHORT OF BREATH ON ARRIVAL NO NAUSEA/VOMITING NO SWELLING IN LEGS/FEET OR PAIN IN CALVES PT HAS HAD PRIOR 4 VESSEL CABG IN 2010 HE HAD 3 STENTS AND ANGIOPLASTY DONE 12/[address] FLOYD AT [facility]--HE WAS REFERRED THERE BY DR. 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 HE DEVELOPED A PSEUDOANEURYSM FOLLOWING THAT PROCEDURE HE SAW DR. GARCIA A COUPLE OF MONTHS AGO FOR ROUTINE FOLLOW UP AND HAS A ROUTINE FOLLOW UP APPOINTMENT WITH DR. FLOYD NEXT SUNDAY HE IS MAINTAINED ON ASPIRIN, PLAVIX, AMLODIPINE, METOPROLOL, PRASUGREL, ATORVASTATIN, REPATHA. HE DENIES ANY MISSED DOSES OF HIS MEDICATIONS. PCP: JOSEPH-ELLY, HED[employer] TR[employer]MER [facility] MANAGER COMMISSION: DR. GARCIA AND ALSO DR. FLOYD AT [facility] Allergies and Home Medications Allergies Coded Allergies: No Known Drug Allergies (Unverified , 04/02/11) Patient Home Medication List Home Medication List Reviewed: Yes Aspirin (Aspirin Ec 81 Mg) 81 Mg Tabec, 81 MG PO DAILY, (Reported) Entered as Reported by: KELSIE CORDERO on 08/22/12 2511 Famotidine (Acid Distribution Center Manager (FAMOTIDINE)) 20 Mg Tablet, 20 MG PO BID, (Reported) Entered as Reported by: JULISA GOODMAN on 12/07/21 1000 Gemfibrozil (Gemfibrozil) 600 Mg Tablet, 600 MG PO BID, (Reported) Entered as Reported by: JULISA GOODMAN on 12/07/21 1000 Lisinopril (Lisinopril) 10 Mg Tablet, 10 MG PO BID, (Reported) Entered as Reported by: GARRETT MESSER on 07/22/19 0812 Metoprolol Tartrate (Metoprolol Tartrate 25 Mg) 25 Mg Tablet, 1 TAB PO BID, (Reported) Entered as Reported by: KELSIE CORDERO on 08/22/12 1756 Rosuvastatin Calcium (Crestor) 20 Mg Tablet, 20 MG PO HS, (Reported) Entered as Reported by: GARRETT MESSER on 07/22/19 0812 Review of Systems Review of Systems Constitutional: see HPI, diaphoresis EENTM: No Symptoms Reported Respiratory: See HPI, Orthopnea, Shortness of Air Cardiovascular: See HPI, Chest Pain; Denies Edema, Denies Irregular Heart Rate; Lightheadedness; Denies Palpitations, Denies Syncope Gastrointestinal: No Symptoms Reported; Denies Abdominal Pain, Denies Nausea, Denies Vomiting Genitourinary: No Symptoms Reported Musculoskeletal: no symptoms reported Skin: no symptoms reported Psychiatric/Neurological: No Symptoms Reported Endocrine: No Symptoms Reported Hematologic/Lymphatic: No Symptoms Reported Past Afvgpjx-Usxjcl-Cgybql Hx Patient Social History Tobacco Use?: Yes Tobacco type used: Cigarettes Smoking Status: Former Smoker Substance use?: No Alcohol Use?: Yes Alcohol type: Beer, Hard Liquor Alcohol Frequency: Once in a while Immunizations Up To Date Tetanus Booster (TDap): Unknown PED Vaccines UTD: No First/Initial COVID19 Vaccinat: 03/06/21 Second COVID19 Vaccination Yuval: 03/27/21 Third COVID19 Vaccination Date: 03/06/21 Past Medical History Surgery/Hospitalization HX: PMH:HYPERLIPIDEMIA AND HYPERTENSION. SURGERY:12/23/21 PT HAD STENTS AND BALLOON PLACED.2010 QUAD. BI-PASS PSEUDOANEURYSM AFTER CARDIAC CATH 12/23/21 WITH REPAIR. Surgeries: Yes Cardiac, CABG, Coronary Stent, Vascular Surgery Respiratory: No Currently Using CPAP: No Cardiac: Yes Coronary Artery Disease, High Cholesterol, Hypertension Neurological: No Reproductive Disorders: No Genitourinary: No Gastrointestinal: No Musculoskeletal: Yes Arthritis Endocrine: No HEENT: Yes (GLASSES; EDENTULOUS) Cancer: No Psychosocial: No Integumentary: No Blood Disorders: No Family Medical History SOCIAL HISTORY: -SMOKED 1 PPD, QUIT 20 YEARS AGO -ETOH--OCCASIONAL USE -DRUGS--DENIES USE PAST SURGICAL HISTORY: -4 VESSEL CABG 2010 -3 STENTS + ANGIOPLASTY 12/[address] FLOYD AT [facility]. Physical Exam Vital Signs Vital Signs - First Documented 04/12/23 04/12/23 23:01 23:13 Temp 36.9 Pulse 106 Resp 20 B/P (MAP) 177/109 (131) Pulse Ox 96 O2 Delivery Room Air O2 Flow Rate 2.00 Capillary Refill : Less Than 3 Seconds Height, Weight, BMI Height: 6'0.00" Weight: 211lbs. 0.0oz. 95.784931rg; 33.00 BMI Method:Stated General Appearance: WD/WN, Moderate Distress, Other (VERY DYSPNEIC, AND PROFUSELY DIAPHORETIC ON ARRIVAL , UNABLE TO RECLINE ON ER CART, ANXIOUS. ) HEENT: PERRL/EOMI, Other (EDENTULOUS) Neck: Normal Inspection; No JVD Respiratory: Normal Breath Sounds, Other (VERY DYSPNEIC) Cardiovascular: No Edema, No JVD, No Murmur, Normal Peripheral Pulses, Tachycardia Gastrointestinal: Non Tender, Soft Extremity: Normal Capillary Refill, Normal Inspection, No Pedal Edema Neurologic/Psychiatric: Alert, Oriented x3, No Motor/Sensory Deficits, Other (ANXIOUS) Skin: Diaphoresis (PROFUSELY DIAPHORETIC), Pallor Progress/Results/Core Measures Results/Orders Lab Results Laboratory Tests Test 04/12/23 23:15 Range/Units White Blood Count 6.7 4.3-11.0 10^3/uL Red Blood Count 5.17 4.30-5.52 10^6/uL Hemoglobin 16.2 13.3-17.7 g/dL Hematocrit 46 40-54 % Mean Corpuscular Volume 88 80-99 fL Mean Corpuscular Hemoglobin 31 25-34 pg Mean Corpuscular Hemoglobin Concent 36 32-36 g/dL Red Cell Distribution Width 12.6 10.0-14.5 % Platelet Count 270 130-400 10^3/uL Mean Platelet Volume 9.7 9.0-12.2 fL Immature Granulocyte % (Auto) 0 % Neutrophils (%) (Auto) 49 42-75 % Lymphocytes (%) (Auto) 37 12-44 % Monocytes (%) (Auto) 10 0-12 % Eosinophils (%) (Auto) 4 0-10 % Basophils (%) (Auto) 0 0-10 % Neutrophils # (Auto) 3.3 1.8-7.8 10^3/uL Lymphocytes # (Auto) 2.5 1.0-4.0 10^3/uL Monocytes # (Auto) 0.7 0.0-1.0 10^3/uL Eosinophils # (Auto) 0.3 0.0-0.3 10^3/uL Basophils # (Auto) 0.0 0.0-0.1 10^3/uL Immature Granulocyte # (Auto) 0.0 0.0-0.1 10^3/uL Prothrombin Time 12.7 12.2-14.7 SEC INR Comment 0.9 0.8-1.4 Activated Partial Thromboplast Time 32 24-35 SEC D-Dimer 0.37 0.00-0.49 UG/ML Sodium Level 140 135-145 MMOL/L Potassium Level 4.1 3.6-5.0 MMOL/L Chloride Level 106 98-107 MMOL/L Carbon Dioxide Level 22 21-32 MMOL/L Anion Gap 12 5-14 MMOL/L Blood Urea Nitrogen 21 H 7-18 MG/DL Creatinine 1.34 H 0.60-1.30 MG/DL Estimat Glomerular Filtration Rate 59 BUN/Creatinine Ratio 16 Glucose Level 140 H 70-105 MG/DL Calcium Level 10.0 8.5-10.1 MG/DL Corrected Calcium 8.5-10.1 MG/DL Magnesium Level 1.9 1.6-2.4 MG/DL Total Bilirubin 0.3 0.1-1.0 MG/DL Aspartate Amino Transf (AST/SGOT) 23 5-34 U/L Alanine Aminotransferase (ALT/SGPT) 27 0-55 U/L Alkaline Phosphatase 88 40-136 U/L Total Creatine Kinase 107 30-200 U/L Creatine Kinase MB 1.7 <6.6 NG/ML Myoglobin 57.4 10.0-92.0 NG/ML Troponin I < 0.028 <0.028 NG/ML B-Type Natriuretic Peptide 13.2 <100.0 PG/ML Total Protein 7.2 6.4-8.2 GM/DL Albumin 4.6 H 3.2-4.5 GM/DL Amylase Level 103 25-125 U/L Lipase 70 8-78 U/L My Orders Orders - GAYLE SCHAFFER DO Ed Iv/Invasive Line Start (04/12/23 22:58) Cbc With Automated Diff (04/12/23 22:58) Magnesium (04/12/23 22:58) Chest 1 View, Ap/Pa Only (04/12/23 22:58) Ekg Tracing (04/12/23 22:58) Comprehensive Metabolic Panel (04/12/23 22:58) Myoglobin Serum (04/12/23 22:58) Protime With Inr (04/12/23 22:58) Partial Thromboplastin Time (04/12/23 22:58) O2 (04/12/23 22:58) Monitor-Rhythm Ecg Trace Only (04/12/23 22:58) Ed Iv/Invasive Line Start (04/12/23 22:58) Creatine Kinase (04/12/23 22:58) Creatine Kinase Mb (04/12/23 22:58) Lipase (04/12/23 22:58) Amylase (04/12/23 22:58) Bnp Lamar (04/12/23 22:58) Fibrin Degradation Products (04/12/23 22:58) Troponin I Lamar (04/12/23 22:58) Nitroglycerin 0.4 Mg Btl 25's (Nitrostat (04/12/23 23:00) Aspirin Chewable Tablet (Baby Aspirin Ch (04/12/23 23:00) Ekg Tracing (04/12/23 23:09) Morphine Injection (Morphine Injection (04/12/23 23:28) Morphine Injection (Morphine Injection (04/12/23 23:31) Ed Iv/Invasive Line Start (04/12/23 23:34) Ns Iv 1000 Ml (Sodium Chloride 0.9%) (04/12/23 23:45) Heparin Drip 07015 Unit/500ml (Heparin (04/12/23 23:45) Heparin (Bolus Per Protocol) (Heparin (B (04/12/23 23:45) Clopidogrel Tablet (Plavix Tablet) (04/12/23 23:45) Medications Given in ED Vital Signs/I&O 04/12/23 04/12/23 04/13/23 23:01 23:13 00:53 Temp 36.9 36.9 Pulse 106 87 Resp 20 16 B/P (MAP) 177/109 (131) 142/86 Pulse Ox 96 99 O2 Delivery Room Air Nasal Cannula Nasal Cannula O2 Flow Rate 2.00 2.00 Blood Pressure Mean: 131 Progress Progress Note : Progress Note PT IS IN MODERATE DISTRESS ON ARRIVAL--VERY DYSPNEIC AND PROFUSELY DIAPHORETIC AND COMPLAINING OF CHEST PAIN VITALS ON ARRIVAL: BP 177/109, HR 110'S, RR 25-30, O2 SAT 96% ON ROOM AIR O2 SATS DID DROP TO 92% ON ROOM AIR, HR UP TO 120'S, BP DOWN TO 110'S SYSTOLIC. PLACED ON O2 AT 4L/NC AND SATS UP TO UPPER 90'S. GIVEN: -ASPIRIN -NTG X 2--SOME RELIEF OF PAIN, DOWN TO 3/10, BUT BP DOWN TO 110'S SYSTOLIC -MORPHINE--SIGNIFICANT IMPROVEMENT IN ALL SYMPTOMS AND VITALS STABILIZED. NO LONGER DIAPHORETIC, PT IS CALM, CHEST PAIN RESOLVED, AND IS NO LONGER DYSPNEIC. PT IS ABLE TO RECLINE ON ER CART -HEPARIN BOLUS AND DRIP -PLAVIX LOADING DOSE VITALS STABLE AT TIME OF TRANSFER: BP 147/82, HR IN 80'S, RR 20, O2 SAT 98% AT 4L/NC NO PRIOR EKG'S HERE SINCE 2010. DID HAVE RHYTHM STRIP FROM STRESS TEST 11/2021. TODAY'S EKG IS CHANGED FROM THE RHYTHM STRIP FROM 11/2021. DISCUSSED TEST RESULTS, NEED FOR TRANSFER AND PT IS AGREEABLE TO PLAN REVIEWED PRIOR RECORDS, INCLUDING ER VISITS, ADMITS/H&PS'/CONSULTS/DISCHARGE SUMMARIES, TESTS/PROCEDURES. Initial ECG Impression Date: Apr 12, 2023 Initial ECG Impression Time: 23:07 Initial ECG Rate: 92 Initial ECG Rhythm: Normal Sinus Initial ECG Intervals TX 160 QRS 101 QT/QTC 334/383 Comment SINUS ARRHYTHMIA BORDERLINE ST ELEVATION INFERIOR LEADS WITH ST DEPRESSION ANTERIOR-LATERAL LEADS INFERIOR Q WAVES. CHANGED FROM RHYTHM STRIP DURING STRESS TEST 11/2021 INTERPRETED BY ME. EKG : EKG Time: 23:13 Rate: 93 Rhythm: Normal Sinus Intervals TX 159 QRS 106 QT/QTC 340/391 Comment SAME ABOVE. INTERPRETED BY ME Diagnostic Imaging Comments CXR--NO ACUTE PROCESS, PENDING RADIOLOGIST REVIEW Reviewed: Reviewed by Me Departure Communication (Admissions) 2330--SPOKE WITH DR. KAUR, EKG IMAGES TEXTED TO HIM. HE ADVISES TO GIVE HEPARIN BOLUS AND DRIP, AND PLAVIX LOADING DOSE, AND ADVISES THAT PT NEEDS TO BE TRANSFERRED DUE TO PRIOR FAILED ATTEMPT WITH CARDIAC CATH HERE DUE TO SEVERE PERIPHERAL ARTERY DISEASE, AND PRIOR MULTIPLE STENTS, ANGIOPLASTY AND PRIOR CABG. 2334--CALLED [facility]. 2335--SPOKE WITH DR. MENESES, MANAGER COMMISSION RETRIEVAL SPECIALIST. ACCEPTS PT FOR DIRECT ADMIT TO PANTOMIMIST. HE AGREES WITH THE ABOVE MEDICATIONS. [facility] HAS BEEN CONTACTED FOR AIR TRANSPORT, NO LOCAL GROUND EMS SERVICES AVAILABLE, AND PT'S CONDITION REQUIRES EMERGENT TRANSFER. 0046--[facility] IS HERE FOR TRANSPORT Impression Primary Impression: STEMI / ACUTE CORONARY SYNDROME Additional Impressions: HX OF PRIOR 4 VESSEL CABG PLUS MULTIPLE STENTS Severe peripheral arterial disease HTN (hypertension) Hyperlipemia Disposition: XFER SHT-TRM HOSP Condition: Improved Transfer Transfer Reason: Exceeds level of care ([facility] FOR CARDIOVASC[facility] UNAVAILABLE HERE) [facility] Method of Transfer: Air Departure-Patient Inst. Referrals: KARLA DOBBS APRN (PCP/Family) Primary Care Physician GAYLE SCHAFFER DO Apr 13, 2023 00:40
[2023-04-13 00:53] VITALS: BP 142/86
--- NOTE | 2023-04-13 07:17 | Diagnostic Imaging Report ---
INDICATION: Chest pain. Comparison is made with prior examination 11/30/2021. FINDINGS: There is cardiomegaly. There has been previous median sternotomy. There is some left perihilar and left basilar atelectasis and/or pneumonitis. There is no pneumothorax. Mediastinum is unremarkable. IMPRESSION: Left perihilar and left basilar atelectasis and/or pneumonitis. Cardiomegaly. Dictated by: Dictated on workstation # [id number]
== END 2023-04-13 01:01 | disposition short-term general hospital (02) ==
LOC: EDUNIT# 22:54 → ER 22:57
DX: I21.3 ST elevation (STEMI) myocardial infarction of unspecified site (principal); I10 Essential (primary) hypertension; I25.119 Atherosclerotic heart disease of native coronary artery with unspecified angina pectoris; I73.9 Peripheral vascular disease, unspecified; E78.5 Hyperlipidemia, unspecified; I49.8 Other specified cardiac arrhythmias; Z87.891 Personal history of nicotine dependence; Z95.1 Presence of aortocoronary bypass graft; Z95.9 Presence of cardiac and vascular implant and graft, unspecified
CPT/HCPCS: 36415; 71045; 80053; 82150; 82550; 82553; 83690; 83735; 83874; 83880; 84484; 85025; 85379; 85610; 85730; 93005; 93041